=== PATIENT | male | born 1970 | race Caucasian/White ===

== ENCOUNTER 2021-11-25 13:18 | Emergency (ER) | payer BC ==
[~2021-11-25] VITALS: Ht 175.3 cm; Wt 113.4 kg
[2021-11-25] MEDS ORDERED: METF-440 PO (13:38)
[2021-11-25] MEDS ORDERED: LAMO25TA5 PO (13:38)
[2021-11-25] MEDS ORDERED: GABA-532 PO (13:38)
--- NOTE | 2021-11-25 13:45 | NUR ---
at bedside to examine pt.
--- NOTE | 2021-11-25 14:10 | NUR ---
TO RADIOLOGY VIA [facility] FOR ORDERED CT SCANS.
[2021-11-25] MEDS ORDERED: NAPR-1192 PO (15:07)
--- NOTE | 2021-11-25 15:18 | NUR ---
DCD instructions given to pt. At this time pt. removed his neck collar stating I"M ok without it. pt. left room ambulatory pain well controlled as stated.
== END 2021-11-25 15:20 | disposition home or self-care (01) ==
LOC: ER 13:18
DX: S16.1XXA Strain of muscle, fascia and tendon at neck level, initial encounter (principal); V49.49XA Driver injured in collision with other motor vehicles in traffic accident, initial encounter; Y92.414 Local residential or business street as the place of occurrence of the external cause; S09.90XA Unspecified injury of head, initial encounter; V48.4XXA Person boarding or alighting a car injured in noncollision transport accident, initial encounter; F31.9 Bipolar disorder, unspecified; R73.03 Prediabetes; Z79.84 Long term (current) use of oral hypoglycemic drugs; Z79.899 Other long term (current) drug therapy
CPT/HCPCS: 70450; 72125; A4663